=== PATIENT | male | born 2000 | race Caucasian/White ===

== ENCOUNTER 2023-03-16 10:42 | Emergency (ER) | payer BC ==
[~2023-03-16] VITALS: Ht 175.3 cm; Wt 86.2 kg
[2023-03-16 11:38] VITALS: PULSE 63; RESP 18; TEMP 97.7; O2SAT 100
[2023-03-16] MEDS ORDERED: ACET-9234 PO (12:45)
[2023-03-16 13:14] VITALS: PULSE 63; RESP 18; TEMP 97.7; O2SAT 100
== END 2023-03-16 13:02 | disposition home or self-care (01) ==
LOC: MED 10:42
DX: G97.1 Other reaction to spinal and lumbar puncture (principal); I25.10 Atherosclerotic heart disease of native coronary artery without angina pectoris; Z79.899 Other long term (current) drug therapy
CPT/HCPCS: 99283